=== PATIENT | male | born 1975 | race African-American/Black ===

== ENCOUNTER 2017-09-13 22:26 | Emergency (ER) | payer BC ==
[~2017-09-13 22:26] MED LIST: AMLO5TAB2 PO; METO100T PO; SPIR25TA PO
[2017-09-14 00:05] VITALS: BP 188/112; PULSE 88; RESP 16; TEMP 97.8; O2SAT 97
--- NOTE | 2017-09-14 02:50 | PD ---
HPI Chief Complaint: Pain: Acute or Chronic Time Seen by Provider: 02:48 Travel History International Travel<30 days: No Contact w/Intl Traveler<30days: No Traveled to known affect area: No History of Present Illness HPI 42-year-old male presents for evaluation of right knee pain. Reports that this evening he was in bed having relations with a woman. He reports that he twisted his right knee in the process. Since then he has had pain and swelling and limited range of motion in the right knee. Pain is throbbing, constant, worse with movement. He has no other complaints at this time. [facility] Past Medical History Hypertension: Yes Immunizations Current: Yes Social History Alcohol Use: Yes Tobacco Use: No Substance Use: No Allergies-Medications (Allergen,Severity, Reaction): Coded Allergies: Sulfa (Sulfonamide Antibiotics) (Unverified Allergy, Unknown, 09/14/17) Reported Meds & Prescriptions Reported Meds & Active Scripts Active Amlodipine (Amlodipine Besylate) 5 Mg Tab 5 Mg PO DAILY Reported Metoprolol Tartrate 100 Mg Tab 100 Mg PO BID Spironolactone 25 Mg Tab 25 Mg PO DAILY Review of Systems Musculoskeletal: Positive: Limited ROM, Edema, Pain Physical Exam Narrative GENERAL: Well-nourished male in no acute distress SKIN: Warm and dry. HEAD: Atraumatic. Normocephalic. EYES: Pupils equal and round. No scleral icterus. No injection or drainage. ENT: No nasal bleeding or discharge. Mucous membranes pink and moist. NECK: Trachea midline. No JVD. CARDIOVASCULAR: Regular rate and rhythm. No murmur appreciated. RESPIRATORY: No accessory muscle use. Clear to auscultation. Breath sounds equal bilaterally. MUSCULOSKELETAL: Right knee effusion is present. There is generalized tenderness to palpation of the right knee. Limited flexion and extension of the right knee secondary to pain and effusion. No open wounds. NEUROLOGICAL: Awake and alert. No obvious cranial nerve deficits. Motor grossly within normal limits. Normal speech. Data Data Last Documented VS Vital Signs Date Time Temp Pulse Resp B/P (MAP) Pulse Ox O2 Delivery O2 Flow Rate FiO2 09/14/17 00:05 97.8 88 16 188/112 (137) 97 Orders Orders Knee, Complete (4vws) (09/14/17 ) Ice/Cold Pack (09/14/17 02:48) Acetaminophen (Tylenol) (09/14/17 03:00) Crutches (09/14/17 04:25) Splint Or Brace Apply/Monitor (09/14/17 04:25) Ed Discharge Order (09/14/17 04:25) [facility] Medical Decision Making Medical Screen Exam Complete: Yes Emergency Medical Condition: Yes Medical Record Reviewed: Yes Differential Diagnosis Ligamentous disruption, meniscal disruption, tibial plateau fracture, proximal fibular fracture Narrative Course X-ray imaging of the right knee will be obtained. Ice pack, Tylenol provided. CONCLUSION: 1. No fracture or subluxation seen in the right knee. 2. Small, nonspecific joint effusion. 3. Osteoarthritis and joint bodies as above. I am concerned about the possibility of ligamentous or meniscal injury from the patient's mechanism injury. He will be discharged with knee immobilizer and crutches. Diagnosis Primary Impression: Internal derangement of right knee Additional Instructions: Crutches as needed. Ice pack several times a day 15 minutes at a time. Follow- up with primary care physician in 1-2 weeks. If symptoms persist outpatient MRI imaging may be warranted. Med/Other Pt SpecificInfo: Orthopedic Instructions Disposition: 01 DISCHARGE HOME Condition: Stable Eugene Gibson Sep 14, 2017 02:50
[2017-09-14] MEDS ORDERED: ACETAMINOPHEN 325 MG TAB PO ONE (03:00)
--- NOTE | 2017-09-14 03:32 | RADRPT ---
EXAM DATE/TIME: 09/14/2017 03:11 [place] COMPARISON: No previous studies available for comparison. INDICATIONS : Right knee pain, fall. MEDICAL HISTORY : None. SURGICAL HISTORY : None. ENCOUNTER: Initial ACUITY: 1 day PAIN SCORE: 9/10 LOCATION: Right lateral knee FINDINGS: NONCONT fracture or subluxation of the right knee. A small joint effusion is suspected. Osteoarthritis is noted, moderate to severe at the patellofemoral compartment, moderate of the medial compartment and mild of the lateral compartment. There is a 14 x 17 x 29 mm osteochondral body in th e notch and a suspected a 3 mm osteochondral body posterior to the medial compartment. CONCLUSION: 1. No fracture or subluxation seen in the right knee. 2. Small, nonspecific joint effusion. 3. Osteoarthritis and joint bodies as above. Daniel Anders MD on September 14, 2017 at 3:29 Board Certified Radiologist. This report was verified electronically.
== END 2017-09-14 05:24 | disposition home or self-care (01) ==
LOC: NEPD 22:26
DX: M23.91 Unspecified internal derangement of right knee (principal); M17.11 Unilateral primary osteoarthritis, right knee; I10 Essential (primary) hypertension; Z79.899 Other long term (current) drug therapy; Z88.2 Allergy status to sulfonamides
CPT/HCPCS: 73564; 99283; E0113; L1830